=== PATIENT | female | born 1985 | race Caucasian/White ===

== ENCOUNTER 2022-02-07 08:00 | Emergency (ER) | payer OTHER, SELFPAY ==
--- NOTE | ~2022-02-07 | CT_ITS ---
EXAMINATION: CT ABDOMEN AND PELVIS WITH CONTRAST CLINICAL INFORMATION: Abdominal pain. Bloody stool. COMPARISON: None TECHNIQUE: Multidetector volumetric images were obtained from the superior aspect of the liver through the pubic symphysis following administration 85 mL of Omnipaque 350 intravenous contrast. Sagittal and coronal reformatted images were obtained on the technologist's workstation. Oral contrast: Yes This CT examination was performed using dose optimization techniques as appropriate, variously including the following: *Automated exposure control *Adjustment of mA and/or kV according to patient size (this includes techniques or standardized protocols for targeted exams where dose is matched to indication/reason for exam; i.e. extremities or head) *Use of iterative reconstruction technique DLP: 684 mGy-cm FINDINGS: LUNG BASES: The visualized lung bases are unremarkable. LIVER, GALLBLADDER, AND BILIARY TREE: The liver is normal in size, shape, and attenuation. No focal hepatic lesion or biliary ductal dilatation is present. The gallbladder is unremarkable with no evidence of radiopaque gallstones, gallbladder wall thickening, or obvious pericholecystic inflammatory changes. PANCREAS: Unremarkable. SPLEEN: Unremarkable. ADRENAL GLANDS: Unremarkable. KIDNEYS AND URETERS: The kidneys are normal in size, shape, and attenuation. No hydronephrosis, hydroureter, or calculi seen. No perinephric stranding. BLADDER: Unremarkable. GASTROINTESTINAL TRACT: The small and large bowel are unremarkable. The appendix is unremarkable. ABDOMINAL WALL: No significant hernia is appreciated. LYMPH NODES: Normal. VASCULAR: Unremarkable. PELVIC VISCERA: IUD in the uterus in satisfactory position. OSSEOUS STRUCTURES: Unremarkable. CT/CT abdomen pelvis w IV con IMPRESSION: No evidence of colitis or diverticulitis. Fleischner guidelines were followed.
[2022-02-07 08:06] VITALS: BP 140/86; PULSE 86; RESP 16; TEMP 36.6; O2SAT 98; BMI 32.9
[2022-02-07 08:50] VITALS: BP 129/80; PULSE 85; RESP 16; TEMP 37; O2SAT 99
--- NOTE | 2022-02-07 09:03 | ED_ITS ---
HPI - Abdominal Pain General Chief Complaint: Abdominal Pain Stated Complaint: Blood Clots Time Seen by Provider: 02/07/22 08:46 Source: patient Mode of arrival: ambulatory History of Present Illness HPI narrative: 37 yo female w/PMHx hemorrhoids presenting to the ED c/o abdominal pain/cramping x month with bloody stools x3 days. Reports associated nausea, decreased p.o. intake, and rectal discomfort with BMs. Reports intermittent clots seen in stool. Denies fevers, chills, headache, SOB, CP,, lightheadedness/dizziness, urinary symptoms, vaginal bleeding/discharge/pain, diarrhea/constipation MD elicited complaint: abdominal pain Onset (ago): week(s) Related Data Previous Rx's Medication Instructions Recorded hydrocortisone 2.5 % topical cream 1 appl ME DAILY PRN hemorrhoids 02/07/22 with perineal applicator #30 grams Allergies Allergy/AdvReac Type Severity Reaction Status Date / Time No Known Allergies Allergy Unverified 11/13/19 15:25 [No Known Allergies*] Review of Systems Review of Systems Constitutional: No Fever, No Chills ENT/Mouth: No Ear Pain, No Nasal Congestion Eyes: No Eye Pain, No Vision Changes Cardiovascular: No Chest Pain, No SOB, No Edema, No Palpitations Respiratory: No Cough, No Sputum, No Dyspnea Gastrointestinal: + Nausea, No Vomiting, + bloody BMs, No Constipation, + Abdominal pain, +rectal pain Genitourinary: No Dysuria, No Urinary Frequency, No Hematuria, No Urinary Incontinence/retention, No Flank Pain Musculoskeletal: No joint pain, No Myalgias, No Joint Swelling Skin: No Skin Lesions, No rash Neuro: No Weakness, No Dizziness, No Headache Yes all other systems are reviewed and are negative Constitutional: Reports as per HPI [facility] Past Medical History Attestation statement: The following information was validated with the patient. Social History Social History Advance Directives: No Advance Directives Information Provided: Yes Physical Exam ED Vital Signs: Vital Signs - 24 hr 02/07/22 08:06 02/07/22 08:50 02/07/22 10:28 Temperature 97.8 F 98.6 F 98.5 F Pulse Rate 86 85 87 Respiratory Rate 16 16 14 Blood Pressure 140/86 H 129/80 109/58 L Pulse Oximetry 98 99 100 Oxygen Delivery Method Room Air Room Air BMI result Body Mass Index 32.9 Const General: cooperative, healthy appearing, comfortable and no acute distress Nutritional Appearance: well nourished Orientation/consciousness: patient oriented x3 Limitations: no limitations HENMT Head: Yes normal to inspection Ears: hearing grossly normal bilaterally General nose exam: Normal external nose present Face and sinus: Yes normal facial exam Eyes General: appearance normal, both eyes and all related structures EOM: EOMs intact bilaterally Neck Neck: Yes normal visual inspection Chest Chest palpation & inspection: normal inspection of the chest Resp Effort & Inspection: normal respiratory effort and able to speak in complete sentences Auscultation: clear to auscultation bilaterally, no crackles, no rales, no rhonchi and no wheezes Cardio Rate: regular rate Rhythm: regular rhythm Heart sounds: S1 normal heart sound present and S2 normal heart sound present GI Other: Prolapsed internal hemorrhoid at 4 o'clock position adjacent to sphincter with small area of thrombosis and small bleeding. Tender to palpation. No fluctuance/induration. Internal hemorrhoid tracks deep internally Small external hemorrhoid at 12:00 o'clock position without thrombosis or bleeding Inspection: Yes normal to inspection Palpation (GI): Soft to palpation, not firm, Tenderness to palpation present (GI) (diffuse > lower abdomen) with no rebound tenderness, no guarding, not rigid and No hepatosplenomegaly present Rectal Exam - Female: Internal hemorrhoid(s) present General: Yes no CVA tenderness Back/Spine/Pelvis Back: no CVA tenderness Skin General skin exam: no rashes or lesions noted Rashes: no rashes Wounds: no wounds Neuro General: patient oriented x3 Gait exam (Neuro): Normal gait present Extrem General: Yes normal to inspection Course Course Course Narrative: -labs unremarkable. UA and negative. -occult stool positive as expected > likely hemorrhoidal rather than occult GI bleed CT abdomen pelvis w IV con IMPRESSION: No evidence of colitis or diverticulitis. ? Fleischner guidelines were followed. > results discussed with patient. Reports bleeding has minimize since ED arrival. Discussed worrisome signs and symptoms in need of close follow-up with Colorectal. Medical Decision Making Medical Decision Making MDM Narrative: 37 yo female w/PMHx hemorrhoids presenting to the ED c/o abdominal pain/cramping x month with bloody stools x3 days. On exam vital signs stable, NAD, nontoxic appearing, abdomen soft with lower tenderness, no rebound or guarding, prolapsed internal hemorrhoid with small amount of thrombosis in bleeding noted. + tracking. Concern for hemorrhoidal bleeding vs fistula vs colitis/appendicitis/diverticulitis or UTI. Lower suspicion for renal stone/pancreatitis/cholecystitis/lithiasis Plan: Labs, UA, CTAP, occult stool, stool studies, IVF Differential Diagnosis Differential Diagnoses: The differential diagnosis associated with the prese ntation includes Admission/Observation Consideration of admission/observation: Escalation of care including admission/observation considered Lab Data MDM Lab Attestation statement: I reviewed the patient's lab results. Result Diagrams: 02/07/22 12:16 02/07/22 12:16 Labs: Lab Results 02/07/22 02/07/22 02/07/22 Range/Units 10:36 10:36 10:36 WBC (4.8-10.8) X10*3/uL RBC (4.20-5.50) X10*6/uL Hgb (12.0-16.0) g/dl Hct (37.0-47.0) % MCV (80.0-98.0) fL MCH (27.0-33.0) pg MCHC (31.0-35.0) g/dl RDW (11.0-16.0) % Plt Count (160-400) X10*3/uL MPV (9.4-12.3) fL Immature Gran % (Auto) (0.0-0.4) % Neut % (Auto) (45-73) % Lymph % (Auto) (20-40) % [place] % (Auto) (2-11) % Eos % (Auto) (0-4) % Baso % (Auto) (0-2) % Lymph # (Auto) (1.2-4.9) X10*3/uL [place] # (Auto) (0.1-1.2) X10*3/uL Eos # (Auto) (0.0-0.4) X10*3/uL Baso # (Auto) (0.0-0.2) X10*3/uL Abs Immat Gran (auto) (0.00-0.03) X10*3/uL Absolute Neuts (auto) (2.0-8.3) x10*3/uL Absolute Nucleated RBC (0.0-0.012) X10*3/uL Nucleated RBC % (auto) (0.0-0.2) /100WBC PT (10.0-13.1) SEC INR (0.9-1.1) Sodium (135-145) mmol/L Potassium (3.3-5.1) mmol/L Chloride (96-108) mmol/L Carbon Dioxide (22-29) mmol/L Anion Gap (12-20) BUN (9-16) mg/dL Creatinine (0.5-1.4) mg/dL Estim Creat Clear Calc Estimated GFR Random Glucose (60-115) mg/dL Calcium (8.4-10.2) mg/dL Magnesium (1.6-2.6) mg/dL Total Bilirubin (0.0-1.0) mg/dL Direct Bilirubin (0.0-0.5) mg/dL AST (5-31) U/L ALT (0-31) U/L Alkaline Phosphatase (39-117) U/L Total Protein (6.5-8.0) g/dL Albumin (3.5-5.0) g/dL Lipase (8-78) U/L Urine Color Yellow Urine Appearance Clear Urine pH 6.0 (5.0-9.0) Ur Specific [place]iley <= 1.005 (1.005-1.025) Urine Protein Negative (Neg-Trace) mg/dL Urine Glucose (UA) Negative (Negative) mg/dL Urine Ketones Negative (Negative) mg/dL Urine Blood Negative (Negative) Urine Nitrite Negative (Negative) Ur Leukocyte Esterase Negative (Negative) Urine Test NEGATIVE (NEGATIVE) Stool Occult Blood POSITIVE (NEGATIVE) 02/07/22 02/07/22 02/07/22 Range/Units 12:16 12:16 12:16 WBC 8.8 (4.8-10.8) X10*3/uL RBC 5.00 (4.20-5.50) X10*6/uL Hgb 13.7 (12.0-16.0) g/dl Hct 41.6 (37.0-47.0) % MCV 83.2 (80.0-98.0) fL MCH 27.4 (27.0-33.0) pg MCHC 32.9 (31.0-35.0) g/dl RDW 12.6 (11.0-16.0) % Plt Count 292 (160-400) X10*3/uL MPV 10.1 (9.4-12.3) fL Immature Gran % (Auto) 0.3 (0.0-0.4) % Neut % (Auto) 76.5 H (45-73) % Lymph % (Auto) 14.5 L (20-40) % [place] % (Auto) 7.1 (2-11) % Eos % (Auto) 0.9 (0-4) % Baso % (Auto) 0.7 (0-2) % Lymph # (Auto) 1.3 (1.2-4.9) X10*3/uL [place] # (Auto) 0.6 (0.1-1.2) X10*3/uL Eos # (Auto) 0.1 (0.0-0.4) X10*3/uL Baso # (Auto) 0.1 (0.0-0.2) X10*3/uL Abs Immat Gran (auto) 0.03 (0.00-0.03) X10*3/uL Absolute Neuts (auto) 6.8 (2.0-8.3) x10*3/uL Absolute Nucleated RBC 0.000 (0.0-0.012) X10*3/uL Nucleated RBC % (auto) 0.0 (0.0-0.2) /100WBC PT 14.1 H (10.0-13.1) SEC INR 1.2 H (0.9-1.1) Sodium 141 (135-145) mmol/L Potassium 4.1 (3.3-5.1) mmol/L Chloride 109 H (96-108) mmol/L Carbon Dioxide 25 (22-29) mmol/L Anion Gap 11 L (12-20) BUN 6 L (9-16) mg/dL Creatinine 0.72 (0.5-1.4) mg/dL Estim Creat Clear Calc 104.9 Estimated GFR > 60 Random Glucose 92 (60-115) mg/dL Calcium 8.7 (8.4-10.2) mg/dL Magnesium 1.8 (1.6-2.6) mg/dL Total Bilirubin 0.6 (0.0-1.0) mg/dL Direct Bilirubin 0.2 (0.0-0.5) mg/dL AST 14 (5-31) U/L ALT 15 (0-31) U/L Alkaline Phosphatase 66 (39-117) U/L Total Protein 6.8 (6.5-8.0) g/dL Albumin 4.3 (3.5-5.0) g/dL Lipase 13 (8-78) U/L Urine Color Urine Appearance Urine pH (5.0-9.0) Ur Specific [place]iley (1.005-1.025) Urine Protein (Neg-Trace) mg/dL Urine Glucose (UA) (Negative) mg/dL Urine Ketones (Negative) mg/dL Urine Blood (Negative) Urine Nitrite (Negative) Ur Leukocyte Esterase (Negative) Urine Test (NEGATIVE) Stool Occult Blood (NEGATIVE) Radiology Impression Discussion of test interpretation with radiology: I have reviewed the radiologist's reading. Medications Administered Discontinued Medications Generic Name Dose Route Start Last Admin Trade Name Alvertoq PRN Reason Stop Dose Admin Diphenhydramine HCl 50 mg 02/07/22 09:28 02/07/22 10:29 Diphenhydramine Hcl 50 Mg/Ml Vial IVPUSH 02/07/22 09:29 50 mg ONCE ONE Administration Sodium Chloride 1,000 mls @ 999 mls/hr 02/07/22 09:15 02/07/22 11:38 Ns IV 02/07/22 10:15 Infused .Q1H1M CHRIS Infusion Iohexol 100 ml 02/07/22 13:44 02/07/22 13:44 Iohexol 350 Mg/Ml 100 Ml Infus..Btl IV 02/07/22 13:45 85 ml ONCE ONE Administration Discharge Plan Discharge Clinical Impression: Bleeding internal hemorrhoids Patient Disposition: Home, Self-Care Instructions: Thrombosed Hemorrhoid (ED) Additional Instructions: Your blood work was reassuring today in [place] department. CT scan was unremarkable. You have a bleeding internal prolapsed hemorrhoid. You need to have close follow-up with [facility] baths at home as discussed. Additionally apply topical hydrocortisone If symptoms persist or worsen, you are unable to have bowel movements, have persistent worsening bleeding, lightheadedness or abdominal pain return to the emergency department Prescriptions: New hydrocortisone 2.5 % cream with perineal applicator 1 appl ME DAILY PRN (Reason: hemorrhoids) Qty: 30 0RF Referrals: Milton Aldana MD [Physician] - 2 days
[2022-02-07] MEDS: 0.9 % Sodium Chloride 1,000 ML 999 ML IV (10:16)
[2022-02-07 10:28] VITALS: BP 109/58; PULSE 87; RESP 14; TEMP 36.9; O2SAT 100
[2022-02-07] MEDS: diphenhydrAMINE HCL 50 MG/ML VIAL IVPUSH (10:29)
[2022-02-07 10:48] LABS: OBS Int Ctl Valid YES; OBS1 POSITIVE (NEGATIVE)
[2022-02-07 10:54] LABS: Appearance Urine Clear; Color Urine Yellow; Glucose Urine UA Negative (Negative); Leukocyte Esterase Urine Negative (Negative); Nitrite Urine Negative (Negative); Specific Gravity - Urine <= 1.005 (1.005-1.025); Urine Blood Negative (Negative); Urine Ketones Negative (Negative); Urine Protein Negative (Neg-Trace)
[2022-02-07 10:55] LABS: UPreg QC Valid YES; Urine Pregnancy NEGATIVE (NEGATIVE)
[2022-02-07 12:21] LABS: MANUAL DIFF FLAG NO
[2022-02-07 12:28] LABS: INTERNATIONAL NORM RATIO 1.2 (0.9-1.1); Prothrombin Time 14.1 SEC (10.0-13.1)
[2022-02-07 12:32] LABS: Basophils Absolute Auto 0.1 X10*3/uL (0.0-0.2); Basophils Percent Auto 0.7 % (0-2); Eosinophils Absolute Auto 0.1 X10*3/uL (0.0-0.4); Eosinophils Percent Auto 0.9 % (0-4); Hematocrit 41.6 % (37.0-47.0); Hemoglobin 13.7 g/dl (12.0-16.0); Imm Gran Abs Auto 0.03 X10*3/uL (0.00-0.03); Imm Gran Pct Auto 0.3 % (0.0-0.4); Lymphocytes Absolute Auto 1.3 X10*3/uL (1.2-4.9); Lymphocytes Percent Auto 14.5 % (20-40); Mean Corpuscular HGB Conc 32.9 g/dl (31.0-35.0); Mean Corpuscular Hemoglobin 27.4 pg (27.0-33.0); Mean Corpuscular Volume 83.2 fL (80.0-98.0); Mean Platelet Volume 10.1 fL (9.4-12.3); Monocytes Absolute Auto 0.6 X10*3/uL (0.1-1.2); Monocytes Percent Auto 7.1 % (2-11); Neutrophils Absolute Auto 6.8 x10*3/uL (2.0-8.3); Neutrophils Percent Auto 76.5 % (45-73); Platelet Count 292 X10*3/uL (160-400); Red Cell Distribution Width 12.6 % (11.0-16.0); White Blood Count 8.8 X10*3/uL (4.8-10.8)
[2022-02-07 13:06] LABS: Alanine Aminotransferase 15 U/L (0-31); Albumin Level 4.3 g/dL (3.5-5.0); Anion Gap 11 (12-20); Aspartate Amino Transferase 14 U/L (5-31); Bilirubin Direct 0.2 mg/dL (0.0-0.5); Bilirubin Total 0.6 mg/dL (0.0-1.0); Blood Urea Nitrogen 6 mg/dL (9-16); Calcium 8.7 mg/dL (8.4-10.2); Carbon Dioxide 25 mmol/L (22-29); Chloride 109 mmol/L (96-108); Creatinine Clr Calc Pharmacy 104.9; Estimated Glomerular Filt Rate > 60; Glucose Random 92 mg/dL (60-115); Lipase 13 U/L (8-78); Magnesium 1.8 mg/dL (1.6-2.6); Potassium 4.1 mmol/L (3.3-5.1); Sodium 141 mmol/L (135-145); Total Protein 6.8 g/dL (6.5-8.0)
[2022-02-07 13:34] LABS: Alkaline Phosphatase 66 U/L (39-117)
[2022-02-07] MEDS: iohexoL 350 MG/ML 100 ML INFUS..BTL IV (13:44)
== END 2022-02-07 15:46 | disposition home or self-care (01) ==
PROVIDERS: Physician Assistant; Emergency Provider Emergency Medicine
DX: K64.8 Other hemorrhoids (principal); R10.30 Lower abdominal pain, unspecified; Z79.899 Other long term (current) drug therapy
CPT/HCPCS: 36415; 74177; 80048; 80076; 81003; 81025; 82272; 83690; 83735; 85025; 85610; 96361; 96374; 99284; J1200; Q9967

== ENCOUNTER 2025-01-12 12:20 | Emergency (ER) | payer OTHER, SELFPAY ==
[2025-01-12 12:28] VITALS: BP 133/100; PULSE 100; RESP 16; TEMP 36.6; O2SAT 97; BMI 33.9
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
[2025-01-12 13:16] LABS: MANUAL DIFF FLAG NO
[2025-01-12 13:18] LABS: Hematocrit 41.9 % (37.0-47.0); Hemoglobin 13.5 g/dl (12.0-16.0); Imm Gran Abs Auto 0.02 X10*3/uL (0.00-0.03); Imm Gran Pct Auto 0.3 % (0.0-0.4); Lymphocytes Absolute Auto 1.7 X10*3/uL (1.2-4.9); Mean Corpuscular HGB Conc 32.2 g/dl (31.0-35.0); Mean Corpuscular Hemoglobin 26.6 pg (27.0-33.0); Mean Corpuscular Volume 82.6 fL (80.0-98.0); NRBC Abs Auto 0.000 X10*3/uL (0.0-0.012); NRBC Pct Auto 0.0 /100WBC (0.0-0.2); Platelet Count 291 X10*3/uL (160-400); Red Blood Count 5.07 X10*6/uL (4.20-5.50); White Blood Count 6.9 X10*3/uL (4.8-10.8)
[2025-01-12 13:42] LABS: Alanine Aminotransferase 23 U/L (0-31); Albumin Level 4.8 g/dL (3.5-5.0); Alkaline Phosphatase 50 U/L (39-117); Anion Gap 10 (12-20); Aspartate Amino Transferase 19 U/L (5-31); Blood Urea Nitrogen 8 mg/dL (9-16); Calcium 9.1 mg/dL (8.4-10.2); Carbon Dioxide 27 mmol/L (22-29); Chloride 107 mmol/L (96-108); Creatinine Clr Calc Pharmacy 101.5; Estimated Glomerular Filt Rate > 60; Potassium 4.1 mmol/L (3.3-5.1); Sodium 140 mmol/L (135-145); Total Protein 7.5 g/dL (6.5-8.0)
--- NOTE | 2025-01-12 15:00 | PC.NURSE ---
pt cleared by CARE team, plan to follow up w outpt providers. belongings returned to pt, plan for discharge.
[2025-01-12 15:10] VITALS: BP 133/100; PULSE 100; RESP 16; TEMP 36.6; O2SAT 97
--- NOTE | 2025-01-12 16:27 | MHC.CARE ---
Referral to PHP/[facility] complete
--- NOTE | 2025-01-12 17:08 | MHC.CARE ---
Rad Team completed PHP referral for this pt. Will follow up tomorrow.
== END 2025-01-12 15:12 | disposition home or self-care (01) ==
PROVIDERS: Physician Assistant; Emergency Provider Emergency Medicine
DX: F33.1 Major depressive disorder, recurrent, moderate (principal); R45.851 Suicidal ideations; F43.9 Reaction to severe stress, unspecified; R10.22 Pelvic and perineal pain left side; Z51.81 Encounter for therapeutic drug level monitoring; Z79.899 Other long term (current) drug therapy
CPT/HCPCS: 36415; 80053; 80307; 84702; 85025; 99284; S9485

== ENCOUNTER 2025-02-06 09:00 | Outpatient (RCR) | payer OTHER, SELFPAY ==
[2025-01-14 11:51] VITALS: BP 120/74; PULSE 80; TEMP 36.9; BMI 33.8
--- NOTE | 2025-01-14 14:14 | PC.ADMIT ---
Patient is a 39 year old partnered female who was referred to [facility] by [facility] crisis care team secondary to increased depression, anxiety, and PTSD sxs. Patient reports work related stresses that is triggering her trauma history. Patient stated she applied for PFMLA. 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 Patient identified supports stating, My partner, a few best friends . Patient is alert and oriented x4. She is calm and cooperative. She presented with depressed mood and anxious affect. When asked patient about SI patient stated, I was and that is why I am here. Patient denied any plans or intent to kill herself. Patient was given a copy of her safety plan if needed. Patient reports that she is not on any medications at this time. Patient stated she uses marijuana nightly to help her sleep and to decrease her anxiety.
--- NOTE | 2025-01-15 13:52 | HO.PHP ---
Vale's case was opened during weekly team treatment meeting
--- NOTE | 2025-01-15 22:45 | P.HPPSP_ITS ---
HPI Date of Service: 01/15/25 Chief Complaint: anxiety Sources of Information: patient interviewed, chart reviewed and crisis/core team assessment reviewed HPI Narrative: Patient is a 39 yo female with history of depression, anxiety, PTSD who was referred to PHP from Crisis. I have a traumatic past... feel I never dealt with it the right way . Past Psychiatric History: No prior IPLOC, PHP, respite, detox/rehab admissions SA: denies SIB: yes Aggression or antisocial behaviors: denies Denies legal history Pertinent developmental hx: Previous diagnoses: Psychiatrist: no (had one years ago) Therapist: moved away PCP: Previous trials: Celexa, ADHD medication/stimulants, Wellbutrin (hated it), Klonopin and possibly Prozac. COUNTS INCLUDE 234 BEDS AT THE [facility] Medical History (Updated 01/16/25 @ 01:04 by Crissy Willard MD) No known health problems Narrative: Seizures: denies Concussions/TBI: denies Nulligravid G0 Ht: 5'2 Wt: ALL: NKDA (apples, shellfish) Diagnostics Vital Signs (24Hr): BMI result Body Mass Index 33.8 Meds/Allergies Allergies Allergies Allergy/AdvReac Type Severity Reaction Status Date / Time apple Allergy Anaphylaxis Verified 01/12/25 13:12 shellfish derived (shellfish) Allergy Anaphylaxis Verified 01/12/25 13:12 Mental Status Exam Mental Status Exam Narrative: Alert, oriented, in no acute distress. Calm, cooperative, engaged. No psychomotor agitation or neurovegetative retardation. Eye contact maintained. Mood depressed, affect constricted. Speech normal. Thought process linear, coherent. Thought content related to stressors,denies SI or HI. No paranoia or delusional content elicited. No evidence of psychosis. Insight and judgment - fair but adequate. Assessment & Plan Assessment & Plan (1) Post traumatic stress disorder (PTSD): Status: Acute Code(s): F43.10 - Post-traumatic stress disorder, unspecified (2) Trichotillomania: Status: Acute Code(s): F63.3 - Trichotillomania (3) Other specified persistent mood disorders: Status: Acute Code(s): F34.89 - Other specified persistent mood disorders (4) Other mixed anxiety disorders: Status: Acute Code(s): F41.3 - Other mixed anxiety disorders (5) Attention and concentration deficit: Status: Acute Code(s): R41.840 - Attention and concentration deficit Plan Admit to [facility] VS reviewed on admission: afebrile, BP 120/74;?80 bpm Start Abilify 1-2 mg daily Start Vyvanse 10 mg continue regular medications for now requesting PFMLA paperwork Routine lab work as indicated EKG, routine for baseline QTc for medication considerations as indicated UDS as indicated [facility] reviewed Continue to monitor as per protocol Patient educated on: diagnosis and medication risk/benefits Informed Consent: understands Reason for continued partial hosp. stay Substantial Risk for: med/psych decompensation Certification I certify that partial hospital treatment is medically necessary due to the symptoms and problems resulting from the patient's mental illness and the failure to treat the patient at the partial hospital level of care would likely result in the patient requiring inpatient psychiatric care which could not be prevented at a less intensive level of care. Time Spent With Patient Time: Total time managing care of this patient today _30_ minutes.
--- NOTE | 2025-01-16 11:55 | HO.PHP ---
PHP staff member placed a referral for med management and OP therapy for [facility] through [facility] and is waiting on a return call with appointment dates and times.
--- NOTE | 2025-01-19 15:01 | HO.PHP ---
PHP admin, Nicki, informed the team that Vale will not be in attendance to program due to being sick.
--- NOTE | 2025-01-21 20:52 | P.PNPSP_ITS ---
Subjective Subjective Date of Service: 01/20/25 Reason For Visit: anxiety Interim History: Patient seen for follow-up today. Drives periods of being able to function a little better but still quite ?stuck... Could not do anything and then started getting overwhelmed . 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 We continue working of Abilify by 1 mg every 1-3 days. Schedule was written up for patient. Sleep trouble has been occurring Requesting PFML paperwork to be filled out through , Denies any thoughts of harming self or others. Medication Compliance: Yes Side effects from medications: No Attending Groups: Yes Review of Systems Acute medical concerns: No Mental Status Exam Mental Status Exam Narrative: Alert, oriented, in no acute distress. Calm, cooperative, engaged. No psychomotor agitation or neurovegetative retardation. Eye contact maintained. Mood depressed, affect constricted. Speech normal. Thought process linear, coherent. Thought content related to stressors,denies SI or HI. No paranoia or delusional content elicited. No evidence of psychosis. Insight and judgment - fair but adequate. Diagnostics Vital Signs (24Hr): BMI result Body Mass Index 33.8 Assessment & Plan Assessment & Plan (1) Post traumatic stress disorder (PTSD): Status: Acute Code(s): F43.10 - Post-traumatic stress disorder, unspecified (2) Trichotillomania: Status: Acute Code(s): F63.3 - Trichotillomania (3) Other specified persistent mood disorders: Status: Acute Code(s): F34.89 - Other specified persistent mood disorders (4) Other mixed anxiety disorders: Status: Acute Code(s): F41.3 - Other mixed anxiety disorders (5) Attention and concentration deficit: Status: Acute Code(s): R41.840 - Attention and concentration deficit Plan Admit to [facility] increase Abilify to 3.5 mg daily continue Vyvanse 10 mg qam continue regular medications for now requesting PFMLA paperwork Routine lab work as indicated EKG, routine for baseline QTc for medication considerations as indicated UDS as indicated VS reviewed on admission: afebrile, BP 120/74;?80 bpm Continue to monitor as per protocol Patient educated on: diagnosis and medication risk/benefits Informed Consent: understands Reason for contiued partial hosp. stay Substantial Risk for: inability to function, rapid decompensation and med/psych decompensation Certification I certify that partial hospital treatment is medically necessary due to the symptoms and problems resulting from the patient's mental illness and the failure to treat the patient at the partial hospital level of care would likely result in the patient requiring inpatient psychiatric care which could not be prevented at a less intensive level of care. Total time managing care of this patient today __30__ minutes. Discharge Plan Discharge Attending provider: Crissy Willard Additional Instructions: New PCP appointment with [facility]. [address], [address], [place], [place] on SundayMarch 09, 2025 at 9:30 am with MARYURI Cross. Office # [phone] Medications: New aripiprazole 2 mg tablet 2 mg PO BEDTIME Qty: 14 0RF aripiprazole 5 mg tablet 5 mg PO BEDTIME Qty: 30 0RF Continued lisdexamfetamine 10 mg capsule 10 mg PO QAM Qty: 30 0RF Rx Instructions: Partial Fill upon patient request. For ADHD Changed ziprasidone HCl 20 mg capsule 20 - 40 mg PO BID PRN (Reason: agitation/PTSD triggers) Qty: 20 0RF Rx Instructions: give with food (meal/snack) Stand Alone Forms: Patient Portal Discharge page Patient Education: ADHD in Adults (ED), PTSD (Post Traumatic Stress Disorder) (ED), PTSD (Post Traumatic Stress Disorder) (DC) Print Language: Monegasque
--- NOTE | 2025-01-28 08:58 | PC.NURSE ---
Patient called out of the program today. She reports that her partner was out plowing all night and she was worried that something was going to happen to him thus did not sleep well. She also reports having a panic attack and feeling hypersensitive. She too tired to drive today. She also has a zoom therapy appointment today. She plans on coming to the program tomorrow.
--- NOTE | 2025-01-29 15:46 | HO.PHPPROGNO ---
Subjective Subjective Date of Service: 01/29/25 Reason For Visit: anxiety Interim History: Patient seen for follow-up today. Reports having had a bad night, had a severe anxiety attack on Sunday after program following a flashback about her father that suddenly popped into her head. I couldnt breath . Tried to manage with planned strategies (taking a shower, calling a friend). Then someone knocked at the door later that night and set all this in motion again and didnt get to program until later. Admits feling discouraged as she felt she was making some progress. She is willing to further titrate ABilify as it had felt to be helpful. WIll add a PRN medication to use for triggers Medication Compliance: Yes Side effects from medications: No Attending Groups: Yes Review of Systems Acute medical concerns: No Mental Status Exam Mental Status Exam Narrative: Alert, oriented, in no acute distress. Calm, cooperative, tired. No psychomotor agitation or neurovegetative retardation. Eye contact maintained. Mood anxious, affect anxious. Speech normal. Thought process linear, coherent. Thought content related to stressors, transient hopelessness without SI or HI. No paranoia or delusional content elicited. No evidence of psychosis. Insight and judgment - fair but adequate. Diagnostics Vital Signs (24Hr): BMI result Body Mass Index 33.8 Assessment & Plan Assessment & Plan (1) Post traumatic stress disorder (PTSD): Status: Acute Code(s): F43.10 - Post-traumatic stress disorder, unspecified (2) Trichotillomania: Status: Acute Code(s): F63.3 - Trichotillomania (3) Other specified persistent mood disorders: Status: Acute Code(s): F34.89 - Other specified persistent mood disorders (4) Other mixed anxiety disorders: Status: Acute Code(s): F41.3 - Other mixed anxiety disorders (5) Attention and concentration deficit: Status: Acute Code(s): R41.840 - Attention and concentration deficit Plan extend PHP start ziprasidone 20 mg BID prn agiation/triggers increase Abilify to 7.5 mg daily will increase Vyvanse to 20 mg qam continue regular medications for now Routine lab work as indicated EKG, routine for baseline QTc for medication considerations as indicated UDS as indicated VS reviewed on admission: afebrile, BP 120/74;?80 bpm Continue to monitor as per protocol Patient educated on: diagnosis and medication risk/benefits Informed Consent: understands Reason for contiued partial hosp. stay Substantial Risk for: inability to function, rapid decompensation and med/psych decompensation Certification I certify that partial hospital treatment is medically necessary due to the symptoms and problems resulting from the patient's mental illness and the failure to treat the patient at the partial hospital level of care would likely result in the patient requiring inpatient psychiatric care which could not be prevented at a less intensive level of care. Total time managing care of this patient today _40___ minutes. Discharge Plan Discharge Attending provider: Crissy Willard Additional Instructions: New PCP appointment with [facility]. [address], [address], [place], [place] on SundayMarch 09, 2025 at 9:30 am with MARYURI Cross. Office # [phone] Medications: New aripiprazole 5 mg tablet 5 mg PO BEDTIME Qty: 30 0RF No Action paroxetine HCl [Paxil] 20 mg tablet 20 mg PO DAILY Qty: 90 0RF Stand Alone Forms: Patient Portal Discharge page Patient Education: ADHD in Adults (ED), PTSD (Post Traumatic Stress Disorder) (ED), PTSD (Post Traumatic Stress Disorder) (DC) Print Language: Telugu
--- NOTE | 2025-02-05 13:29 | PC.NURSE ---
Patient called and made and made a new PCP appointment with [facility]. [address], [address], [place], [place] on SundayMarch 09, 2025 at 9:30 am with MARYURI Cross. Office # [phone]
--- NOTE | 2025-02-06 22:23 | P.PNPSP_ITS ---
Subjective Subjective Date of Service: 02/06/25 Reason For Visit: anxiety Interim History: Patient seen for follow-up, anticipating discharge at the end of program today.? Havent had any rage fits...been less ragey . Has had some dizzy spells. Says he didnt end up picking up or starting the medication but does have a provider appointment on Sunday. Reports no other acute issues or concerns. Medication compliant, medications well-tolerated. Denies any adverse effects.? Mood is stable.? Denies any hopelessness or SI. Denies thoughts of harming self or others at this time. Denies any aggressive ideation or HI. Denies any paranoia or AH or VH. Sleep, appetite, energy stable. Medication Compliance: Yes Side effects from medications: No Attending Groups: Yes Review of Systems Acute medical concerns: No Mental Status Exam Mental Status Exam Narrative: Alert, oriented, in no acute distress. Calm, cooperative. Mood less anxious and depressed, some residual irritability, more stable, affect appropriate no notable lability.. Speech normal. Thought process linear, coherent, more goal- directed. Thought content related to stressors, future-oriented, denies any helplessness, hopelessness or SI.? No aggressive ideation or HI. No paranoia or delusional content elicited. No evidence of psychosis. Insight and judgment fair-good. Diagnostics Vital Signs (24Hr): BMI result Body Mass Index 33.8 Assessment & Plan Assessment & Plan (1) Post traumatic stress disorder (PTSD): Status: Acute Code(s): F43.10 - Post-traumatic stress disorder, unspecified (2) Trichotillomania: Status: Acute Code(s): F63.3 - Trichotillomania (3) Other specified persistent mood disorders: Status: Acute Code(s): F34.89 - Other specified persistent mood disorders (4) Other mixed anxiety disorders: Status: Acute Code(s): F41.3 - Other mixed anxiety disorders (5) Attention and concentration deficit: Status: Acute Code(s): R41.840 - Attention and concentration deficit Plan Discharge from [facility] Continue regular medications? Refills sent to pharmacy Will defer further medication management to outpatient provider *Safety plan reviewed *Discharge diagnoses, treatment course, discharge plan have been reviewed with patient (including medication regime, medication management, potential side effects) as well as treatment rationale were also revisited *Discharge paperwork signed and given to patient, copy sent for scanning to chart Patient educated on: diagnosis and medication risk/benefits Informed Consent: understands Reason for contiued partial hosp. stay Substantial Risk for: stable for discharge Certification I certify that partial hospital treatment is medically necessary due to the symptoms and problems resulting from the patient's mental illness and the failure to treat the patient at the partial hospital level of care would likely result in the patient requiring inpatient psychiatric care which could not be prevented at a less intensive level of care. Total time managing care of this patient today __30__ minutes. Discharge Plan Discharge Attending provider: Crissy Willard Additional Instructions: New PCP appointment with [facility]. [address], [address], [place], [place] on SundayMarch 09, 2025 at 9:30 am with MARYURI Cross. [facility] # [phone] Medications: New aripiprazole 5 mg tablet 5 mg PO BEDTIME Qty: 30 0RF No Action paroxetine HCl [Paxil] 20 mg tablet 20 mg PO DAILY Qty: 90 0RF Stand Alone Forms: Patient Portal Discharge page Patient Education: ADHD in Adults (ED), PTSD (Post Traumatic Stress Disorder) (ED), PTSD (Post Traumatic Stress Disorder) (DC) Print Language: Hungarian
== END 2025-02-06 23:59 | disposition home or self-care (01) ==
LOC: HO.PHPA 09:00
PROVIDERS: Visit Provider Psychiatry & Neurology Psychiatry
DX: F43.10 Post-traumatic stress disorder, unspecified (principal); F63.3 Trichotillomania; F34.89 Other specified persistent mood disorders; F41.3 Other mixed anxiety disorders; R41.840 Attention and concentration deficit; Z79.899 Other long term (current) drug therapy
CPT/HCPCS: 90791; 90853

== ENCOUNTER → 2025-02-06 09:00 | Outpatient (BNV) | payer OTHER, SELFPAY | PROVIDERS: Visit Provider Psychiatry & Neurology Psychiatry | DX: F43.10 Post-traumatic stress disorder, unspecified (principal); F63.3 Trichotillomania; F34.89 Other specified persistent mood disorders; F41.3 Other mixed anxiety disorders; R41.840 Attention and concentration deficit | CPT/HCPCS: 90792; 99213 ==